=== PATIENT | male | born 1970 | race African-American/Black ===

== ENCOUNTER 2021-11-12 14:16 | Outpatient (CLI) | payer OTHER | END 2021-11-12 14:17 | disposition home or self-care (01) | LOC: CSHRAD 14:16 | PROVIDERS: ATTEND Psychiatry & Neurology Neurology | DX: M25.50 Pain in unspecified joint (principal); R93.6 Abnormal findings on diagnostic imaging of limbs; M16.0 Bilateral primary osteoarthritis of hip | CPT/HCPCS: 72170; 73521 ==

== ENCOUNTER 2022-01-18 08:11 | Emergency (ER) | payer OTHER, SELFPAY ==
[2022-01-18] MEDS ORDERED: Ketorolac Tromethamine 30 MG/ML VIAL ONE (08:59)
== END 2022-01-18 10:36 | disposition home or self-care (01) ==
LOC: CSHERS 08:11
DX: M62.830 Muscle spasm of back (principal); M25.511 Pain in right shoulder; Z87.891 Personal history of nicotine dependence
CPT/HCPCS: 96372; J1885

== ENCOUNTER 2022-07-09 08:19 | Outpatient (CLI) | payer OTHER | END 2022-07-09 08:20 | disposition home or self-care (01) | LOC: CSHULT 08:19 | PROVIDERS: ATTEND Nurse Practitioner Family | DX: R76.8 Other specified abnormal immunological findings in serum (principal) | CPT/HCPCS: 76700 ==

== ENCOUNTER 2023-09-15 16:50 | Emergency (ER) | payer SELFPAY | END 2023-09-15 18:00 | disposition home or self-care (01) | LOC: CSHERS 16:50 | DX: L03.312 Cellulitis of back [any part except buttock and flank] (principal); L02.212 Cutaneous abscess of back [any part, except buttock and flank]; I10 Essential (primary) hypertension; F17.210 Nicotine dependence, cigarettes, uncomplicated; E11.40 Type 2 diabetes mellitus with diabetic neuropathy, unspecified | CPT/HCPCS: 99282 ==